=== PATIENT | female | born 1980 | race Caucasian/White ===

== ENCOUNTER 2018-09-27 22:36 | Emergency (ER) | payer SELFPAY ==
[~2018-09-27] VITALS: Ht 154.9 cm; Wt 103.2 kg
[~2018-09-27 22:36] MED LIST: IBUP-1542 PO
[2018-09-27 22:44] VITALS: Ht 154.9 cm; Wt 103.2 kg
[2018-09-28] MEDS ORDERED: KETOROLAC 30 MG INJ IM STA (01:12)
[2018-09-28 01:58] VITALS: BP 134/73; PULSE 67; RESP 16
== END 2018-09-28 01:58 | disposition home or self-care (01) ==
LOC: FTE 22:36
DX: M25.461 Effusion, right knee (principal)
CPT/HCPCS: 81025; 96372; 99284; J1885